=== PATIENT | male | born 1970 | race Caucasian/White ===

== ENCOUNTER → 2021-10-13 13:59 | Outpatient (CLI) | payer OTHER, SELFPAY ==
--- NOTE | 2021-10-13 14:02 | DI.RAD.S_ITS ---
PROCEDURE: XR CERVICAL SPINE 4V OR 5V INDICATIONS: neck pain TECHNIQUE: 5 views of the cervical spine acquired. COMPARISON: [facility] Outside [facility], MR, MR CERVICAL SPINE WITHOUT CONTRAST, 06/11/2020, 12:59. [facility], CR, XR CERVICAL SPINE 4 OR 5 VIEW, 06/06/2020, 13:10. FINDINGS: Bones: No fractures or dislocations to the T1 level. Oblique images demonstrate no bony foraminal stenoses. Mild C5-C6, C6-C7 and C7-T1 degenerative disc disease. Mild C3-C4, C5-C6, C6-C7 and C7-T1 facet hypertrophy. Mild bilateral C3-C4 uncovertebral hypertrophy. Oblique images demonstrate no significant osseous neural foraminal stenosis. Soft tissues: No prevertebral soft tissue swelling. IMPRESSION: 1. Multilevel degenerative disc disease. 2. Multilevel facet arthropathy. 3. No fracture. No acute osseous lesion. If symptoms and/or clinical suspicion for pathology persists, evaluation with MRI should be considered for further assessment. Dictated by: Humera Salazar MD, PhD on 10/13/2021 at 15:33 Approved by: Humera Salazar MD, PhD on 10/13/2021 at 15:34
== END ==
PROVIDERS: Referring Provider Physical Medicine & Rehabilitation; Visit Provider Physical Medicine & Rehabilitation
DX: M50.322 Other cervical disc degeneration at C5-C6 level (principal); M47.812 Spondylosis without myelopathy or radiculopathy, cervical region
CPT/HCPCS: 72050

== ENCOUNTER → 2021-10-26 09:15 | Outpatient (CLI) | payer OTHER, SELFPAY | LOC: PHYS 09:16 | PROVIDERS: Referring Provider Physical Medicine & Rehabilitation; Visit Provider Physical Medicine & Rehabilitation | DX: G56.00 Carpal tunnel syndrome, unspecified upper limb (principal); M54.12 Radiculopathy, cervical region | CPT/HCPCS: 95885; 95886; 95912 ==

== ENCOUNTER → 2021-11-11 12:36 | Outpatient (CLI) | payer OTHER, SELFPAY ==
--- NOTE | 2021-11-11 12:38 | DI.MRI.S_ITS ---
PROCEDURE: MR CERVICAL SPINE WO CON INDICATIONS: cervical radiculopathy TECHNIQUE: Noncontrast sagittal T1 spin echo and T2 fast spin echo, sagittal STIR, foraminal oblique sagittal T2 fast spin echo, and axial gradient echo or T2 fast spin echo through the cervical spine. COMPARISON: [facility] Outside Film, MR, MR CERVICAL SPINE WITHOUT CONTRAST, 06/11/2020, 12:59. [facility], CR, XR CERVICAL SPINE 4V OR 5V, 10/13/2021, 13:56. FINDINGS: Image quality: Excellent. Alignment and Curvature: Roughly 2 mm of retrolisthesis of C3 on C4. Bone Marrow: Marrow demonstrates normal overall signal. Minimal reactive signal within the endplates adjacent to the C2-C3, C3-C4, C4-C5, C5-C6, and C6-C7 intervertebral discs. Spinal Cord: Visualized spinal cord has normal size and signal. No cerebellar tonsillar herniation. Paraspinous Soft Tissues: No paravertebral masses. Prevertebral soft tissues are normal in thickness. C2-C3: Mild disc desiccation and diffuse disc bulge. Congenital canal stenosis. Moderate canal stenosis. Mild bilateral foraminal stenosis. No significant change. C3-C4: Congenital canal stenosis. Mild disc desiccation and diffuse disc bulge. Mild facet and uncovertebral hypertrophy bilaterally. Moderate to severe canal stenosis. Moderate bilateral foraminal stenosis. No significant change. C4-C5: Mild disc desiccation and diffuse disc bulge. Congenital canal stenosis. Mild facet and uncovertebral hypertrophy bilaterally. Moderate canal stenosis. Moderate right and mild left foraminal stenosis. No significant change. C5-C6: Mild disc desiccation and diffuse disc bulge. Congenital canal stenosis. Mild facet and uncovertebral hypertrophy bilaterally. Moderate to severe canal stenosis. Increased, severe right and mild left foraminal stenosis. New right C6 nerve root compression. C6-C7: Mild disc desiccation and diffuse disc bulge. Mild facet and uncovertebral hypertrophy bilaterally. Congenital canal stenosis. Moderate canal stenosis. Increased, severe right foraminal stenosis. No change in mild left foraminal stenosis. New right C7 nerve root compression. C7-T1: Normal appearance. IMPRESSION: 1. Diffuse congenital canal stenosis with superimposed disc and facet disease, as well as uncovertebral hypertrophy. 2. Multilevel canal stenoses, worst at C3-C4 and C5-C6 where there are moderate to severe canal stenosis. 3. Multilevel foraminal stenoses, worst at C5-C6 and C6-C7 where there is associated intraforaminal nerve root compression. Recommend correlation with clinical symptoms to ascertain relevance of these findings. Dictated by: Felipe Miller M.D. on 11/13/2021 at 9:00 Approved by: Felipe Miller M.D. on 11/13/2021 at 9:33
== END ==
PROVIDERS: Referring Provider Physical Medicine & Rehabilitation; Visit Provider Physical Medicine & Rehabilitation
DX: M50.11 Cervical disc disorder with radiculopathy, high cervical region (principal); M48.02 Spinal stenosis, cervical region
CPT/HCPCS: 72141